=== PATIENT | male | born 1995 | race Caucasian/White ===

== ENCOUNTER 2020-08-11 16:04 | Emergency (ER) | payer SELFPAY ==
[~2020-08-11] VITALS: Ht 175.3 cm; Wt 86.0 kg
[2020-08-11 16:16] VITALS: BP 139/92
== END 2020-08-11 17:50 | disposition home or self-care (01) ==
LOC: ER 16:04
DX: S00.83XA Contusion of other part of head, initial encounter (principal); W10.9XXA Fall (on) (from) unspecified stairs and steps, initial encounter; Y93.01 Activity, walking, marching and hiking; Y92.89 Other specified places as the place of occurrence of the external cause
CPT/HCPCS: 70486; 99284